=== PATIENT | female | born 1950 | race Caucasian/White ===

== ENCOUNTER 2020-01-05 05:56 | Inpatient (IN) ==
--- NOTE | 2019-12-20 16:48 | PAT Medication Instructions ---
Medication Instructions Date of Service December 20, 2019 Home Medications anastrozole 1 mg PO QAM atorvastatin 10 mg PO QPM bupropion HCl 300 mg PO QPM celecoxib [Celebrex] 200 mg PO QPM cholecalciferol (vitamin D3) [Vitamin D3] 1,000 unit PO DAILY cyanocobalamin (vitamin B-12) [Vitamin B-12] 1,000 mcg PO DAILY hydroxyzine HCl 25 mg PO UD PRN metformin 500 mg PO BID metoprolol tartrate 50 mg PO BID olmesartan-hydrochlorothiazide 1 tab PO QAM pantoprazole 40 mg PO HS potassium chloride 10 meq PO BID risperidone 1 mg PO HS ropinirole 1 mg PO UD PRN ASK your surgeon for instructions celecoxib [Celebrex] 200 mg PO QPM anastrozole 1 mg PO QAM STOP taking 24 hours before surgery ropinirole 1 mg PO UD PRN DO NOT take the morning of surgery potassium chloride 10 meq PO BID olmesartan-hydrochlorothiazide 1 tab PO QAM metformin 500 mg PO BID cholecalciferol (vitamin D3) [Vitamin D3] 1,000 unit PO DAILY cyanocobalamin (vitamin B-12) [Vitamin B-12] 1,000 mcg PO DAILY hydroxyzine HCl 25 mg PO UD PRN Take morning of surgery With a small sip of water, OTHERWISE NOTHING TO EAT OR DRINK AFTER MIDNIGHT: metoprolol tartrate 50 mg PO BID Take evening before surgery risperidone 1 mg PO HS pantoprazole 40 mg PO HS potassium chloride 10 meq PO BID metoprolol tartrate 50 mg PO BID metformin 500 mg PO BID atorvastatin 10 mg PO QPM bupropion HCl 300 mg PO QPM hydroxyzine HCl 25 mg PO UD PRN (if needed) Other Notes If you have any questions please call us at [phone] or [phone] or [phone] or [phone]
--- NOTE | 2019-12-21 12:30 | Anesthesiology Consultation ---
Date of Service December 21, 2019 Assessment & Plan (1) Encounter for pre-operative examination: Chart Review Chart Review: Pending: Refer to Additional Notes / Consult section (awaiting PCP and cardio clearance ) and Patient seen in Pre Admission Testing Surgeons office informed of urine results Awaiting PCP clearance (12/26) and cardio clearance (12/27) Teaching & Discussion Pre-Anesthesia Teaching/Discussion Notes: Instructed NPO after midnight before surgery,except medications with 15 cc of water. Medication instructions provided according to the PAT guidelines. History Surgery Operation Date: 01/05/20 07:45 Proposed Procedures p C5-C7 Anterior Cervical Discectomy and Fusion, Spinal Cord Monitoring - Hakeem Vides DO Height/Weight Height: 5 ft Weight: 87.5 kg Allergies Allergy/AdvReac Type Severity Reaction Status Date / Time amlodipine Allergy Unknown FEET Verified 12/14/19 09:05 SWELLING Bactrim Allergy Unknown HIVES Verified 10/20/15 06:00 sulfamethoxazole Allergy Unknown HIVES Verified 12/14/19 09:05 trimethoprim Allergy Unknown HIVES Verified 12/14/19 09:05 lisinopril AdvReac Unknown Cough Verified 12/14/19 09:05 Medications Home Medications Medication Instructions Recorded Confirmed Last Taken anastrozole 1 mg PO QAM 12/14/19 12/14/19 Unknown atorvastatin 10 mg PO QPM 12/14/19 12/14/19 Unknown bupropion HCl 300 mg PO QPM 12/14/19 12/14/19 Unknown celecoxib [Celebrex] 200 mg PO QPM 12/14/19 12/14/19 Unknown cholecalciferol (vitamin D3) 1,000 unit PO DAILY 12/14/19 12/14/19 Unknown [Vitamin D3] cyanocobalamin (vitamin B-12) 1,000 mcg PO DAILY 12/14/19 12/14/19 Unknown [Vitamin B-12] hydroxyzine HCl 25 mg PO UD PRN 12/14/19 12/14/19 Unknown metformin 500 mg PO BID 12/14/19 12/14/19 Unknown metoprolol tartrate 50 mg PO BID 12/14/19 12/14/19 Unknown olmesartan-hydrochlorothiazide 1 tab PO QAM 12/14/19 12/14/19 Unknown pantoprazole 40 mg PO HS 12/14/19 12/14/19 Unknown potassium chloride 10 meq PO BID 12/14/19 12/14/19 Unknown risperidone 1 mg PO HS 12/14/19 12/14/19 Unknown ropinirole 1 mg PO UD PRN 12/14/19 12/14/19 Unknown Past Medical History Medical History (Updated 12/22/19 @ 12:21 by Selma Mercado PA-C) Acid reflux Well controlled and stable Anxiety MEDS CONTROL Cervical disc disease Depression MEDS CONTROL Diabetes Well controlled and stable. Family history of reaction to anesthesia FATHER, SLOW TO WAKE UP High cholesterol History of anesthesia reaction JAW DISLOCATION (REMOTE HX YEARS AGO) NO PROBLEMS SINCE, DENIES CURRENT PROBLEMS WITH JAW History of left breast cancer DOUBLE MASTECTOMY AND HX RADIATION, CHEMO (2013)- no issues recently Hypertension Kidney stones CURRENT STONES NOTED TO KIDNEY BUT NO RECENT PASSING OF STONES OR ISSUES Rapid heartbeat ONE EPISODE- LESS THAN ONE YEAR AGO- A FIB RULE OUT- NO ISSUES SINCE- FOLLOWS WITH CARDIO Restless leg Exercise / Class Metabolic Activity II 4-5 Yardwork/Stairs/Walk up hill (ONE FLIGHT STAIRS- NO CHEST PAIN OR SOB) Past Family History Family History (Updated 12/14/19 @ 09:23 by Aidan Campbell RN) Grandmother Family history of diabetes mellitus Other Family history of breast cancer in mother Family history of colon cancer in father Past Surgical History Surgical History (Updated 12/21/19 @ 12:28 by Selma Mercado PA-C) History of bilateral mastectomy History of cholecystectomy History of colonoscopy & ENDOSCOPY (SAME TIME) History of D&C X3- MOST RECENTLY DONE 11/23/19 (SECONDARY TO CYST ON CERVIX) History of surgery PORT PLACEMENT RIGHT UPPER CHEST, CURRENT History of tonsillectomy History of total left knee replacement History of total right knee replacement Past Anesthesia History No Hx of Anesthesia Complications (ONE EPISODE OF JAW DISCLOCATION - HAS HAD SUBSEQUENT SURGERIES WITHOUT ISSUES ) and No Family Hx of Anesthesia Complications (FATHER- SLOW TO WAKE- DROWSY- NO PROLONGED INTUBATION OR ICU STAY) History of PONV No Hx of PONV and No Hx of Motion Sickness STOP BANG Total 4 Social History Smoking Status: Never smoker Do You Dip or Chew Tobacco: No Hx Alcohol Use: No Hx Substance Use: No substance use type: does not use Review of Systems Blood transfusion 1973- s/p childbirth Patient denies chest pain, shortness of breath, dyspnea on exertion, cough, wheezing, palpitations. No hx of seizures, stroke, NV, apnea/snoring. No hx of blood clots. No recent steroid use Physical Exam Vital Signs VITALS BP 118/74 P 58 TEMP 98.0 SP02 96% RESP 16 Constitutional + obese; no acute distress ENMT Mouth: no chipped teeth Thyromental Distance: < 3.5 Finger Breadths (3.0) Mallampati Class: III One crown to bottom left molar Missing molars Neck + short neck, + thick neck and + limited neck extension Respiratory normal respiratory effort; no respiratory distress Auscultation: lungs clear to auscultation bilaterally; no wheezes Cardiovascular Rate/Rhythm: regular rate and regular rhythm Heart Sounds: no murmur Vessels: no carotid bruit Extremities: no edema Musculoskeletal Spine: + pain with cervical ROM Neurologic moves all extremities Psychiatric Orientation: alert Testing Laboratory Results 12/21/19 12:38 12/21/19 12:38 PT 10.6 Seconds (9.0-12.0) 12/21/19 12:38 INR 1.0 (0.9-1.1) 12/21/19 12:38 APTT 24.5 Seconds (21.0-31.0) 12/21/19 12:38 Hemoglobin A1c 6.3 % (4.5-5.6) H 12/21/19 12:38 Urine Color Yellow 12/21/19 Unknown Urine Appearance Clear (Clear) 12/21/19 Unknown Urine pH 5.5 (4.5-7.5) 12/21/19 Unknown Ur Specific Fountain 1.016 (1.000-1.030) 12/21/19 Unknown Urine Protein Negative (Negative) 12/21/19 Unknown Urine Glucose (UA) Negative (Negative) 12/21/19 Unknown Urine Ketones Negative (Negative) 12/21/19 Unknown Urine Nitrite Negative (Negative) 12/21/19 Unknown Ur Leukocyte Esterase 2+ (Negative) H 12/21/19 Unknown Urine WBC (Auto) 10-30 /hpf (0-5) H 12/21/19 Unknown Urine RBC (Auto) 0-4 /hpf (0-4) 12/21/19 Unknown U Hyaline Cast (Auto) 1-5 /lpf (0-5) 12/21/19 Unknown U Epithel Cells (Auto) 10-20 /lpf (0-5) H 12/21/19 Unknown Urine Bacteria (Auto) 2+ (Negative) H 12/21/19 Unknown Blood Type O Positive 12/21/19 12:38 Antibody Screen NEGATIVE 12/21/19 12:38 12/21/19 Unknown Urine Culture - Preliminary Urine,Clean Catch Gram negative bacilli Electrocardiogram Date: 12/21/19 Findings: + SB @ (58) and + no change from (August 10, 2015) Low voltage QRS. Chest X-Ray Date: 12/21/19 Findings: + NAD
[2019-12-21 13:30] LABS: Basophils # (auto) 0.01 K/uL (0-0.2); Basophils % (auto) 0.2 %; Eosinophils # (auto) 0.06 K/uL (0-0.5); Eosinophils % (auto) 1.1 %; Hematocrit (blood only) 35.9 % (37-47); Immature Granulocytes # (auto) 0.01 K/uL (0.00-0.02); Immature Granulocytes % (auto) 0.2 %; Lymphocytes # (auto) 1.58 K/uL (1.2-3.4); Lymphocytes % (auto) 29.2 %; Mean Corpuscular Hemoglobin 31.3 pg (25-34); Mean Corpuscular Hgb Conc 33.4 g/dL (32-36); Mean Corpuscular Volume 93.5 fL (80-100); Mean Platelet Volume 10.4 fL (7.4-10.4); Monocytes # (auto) 0.51 K/uL (0.11-0.59); Monocytes % (auto) 9.4 %; Neutrophils # (auto) 3.24 K/uL (1.4-6.5); Neutrophils % (auto) 59.9 %; Platelet Count 215 K/uL (130-400); RDW Coefficient of Variation 12.6 % (11.5-14.5); RDW Standard Deviation 42.8 fL (36.4-46.3); Red Blood Count 3.84 M/uL (4.2-5.4); White Blood Count 5.41 K/uL (4.8-10.8)
--- NOTE | 2019-12-21 13:30 | XRay Report ---
XR chest Pre-admission PA/Lat CLINICAL HISTORY: pat preoperative evaluation COMPARISON STUDY: 08/10/2015 FINDINGS: The lungs are clear. Diaphragms are smooth. There is a central catheter in superior vena ca va. IMPRESSION: No acute process. ACT 112: Negative or not required by law. The above report was generated using voice recognition software. It may contain grammatical, syntax or spelling errors. Electronically signed by: Slim Matta M.D. 12/21/2019 1:28 PM
[2019-12-21 13:35] LABS: Appearance Urine Clear (Clear); Bacteria Urine Automated 2+ (Negative); Bilirubin Urine Negative (Negative); Blood Urine Negative (Negative); Color Urine Yellow; Glucose Urine UA Negative (Negative); Ketones Urine Negative (Negative); Leukocyte Esterase Urine 2+ (Negative); Nitrite Urine Negative (Negative); Protein Urine Negative (Negative); RBC Urine Automated 0-4 /hpf (0-4); Specific Gravity Urine 1.016 (1.000-1.030); Urobilinogen Urine Negative (Negative); pH Urine 5.5 (4.5-7.5)
[2019-12-21 13:47] LABS: Partial Thromboplastin Ratio 0.9; Partial Thromboplastin Time 24.5 Seconds (21.0-31.0); Prothrombin Time 10.6 Seconds (9.0-12.0)
[2019-12-21 14:05] LABS: BUN Creatinine Ratio 18.2 (10-20); Calcium 9.4 mg/dl (8.5-10.1); Creatinine Clr Calc Pharmacy 51.4 ml/min; Est GFR (African American) 64.7; Est GFR (Non-African American) 55.8; Potassium 4.1 mmol/L (3.5-5.1)
--- NOTE | 2019-12-21 15:33 | Electrocardiogram Report ---
Test Reason : Blood Pressure : / mmHG Vent. Rate : 058 BPM Atrial Rate : 058 BPM P-R Int : 160 ms QRS Dur : 076 ms QT Int : 440 ms P-R-T Axes : 039 -04 044 degrees QTc Int : 431 ms Sinus bradycardia Low voltage QRS Borderline ECG When compared with ECG of 10-AUG-2015 11:14, No significant change was found Confirmed by Nael Howard ([id number]) on 12/21/2019 3:32:49 PM Referred By: Hakeem Vides Confirmed By:Nael Howard
[2019-12-22 05:37] LABS: Estimated Average Glucose 134 mg/dl; Hemoglobin A1C 6.3 % (4.5-5.6)
[~2020-01-05 05:56] MED LIST: SODIUM CHLORIDE 0.9% 250 ML IV PRN
[2020-01-05] MEDS ORDERED: CeleBREX 200 MG CAP PO SCH (06:00)
[2020-01-05] MEDS ORDERED: CEFAZOLIN 2000MG 2,000 MG/15 ML SYR IV SCH (06:00)
[2020-01-05] MEDS ORDERED: GABAPENTIN 300 MG CAP PO SCH (06:00)
[2020-01-05] MEDS ORDERED: ACETAMINOPHEN 500 MG TAB PO SCH (06:00)
[2020-01-05] MEDS ORDERED: LR 15ML/HR IV SCH (06:00)
[2020-01-05] MEDS ORDERED: fentaNYL citrate 100 MCG/2 ML VIAL ONE (06:47)
[2020-01-05] MEDS ORDERED: MIDAZOLAM HCL 1 MG/ML 2ML VIAL ONE (06:48)
[2020-01-05] MEDS ORDERED: LIDOCAINE 2% JELLY 5 ML TUBE ONE (06:50)
[2020-01-05] MEDS ORDERED: PROPOFOL IV EMULSION 10 MG/ML 100 ML VIAL IV ONE (07:00)
[2020-01-05] MEDS ORDERED: HYDROmorphone INJ 1 MG/ML SYRINGE IV PRN ×2 (07:13→12:01)
[2020-01-05] MEDS ORDERED: BACITRACIN INJ 50,000 UNIT VIAL ONE (07:13)
[2020-01-05] MEDS ORDERED: ATROPINE SULFATE 0.1 MG/ML 10ML SYR IV PRN (07:13)
[2020-01-05] MEDS ORDERED: ePHEDrine sulfate 50 MG/ML AMP IV PRN (07:13)
[2020-01-05] MEDS ORDERED: ONDANSETRON INJ 2 MG/ML 2 ML VIAL IV PRN ×2 (07:13→12:01)
[2020-01-05] MEDS ORDERED: fentaNYL citrate 100 MCG/2 ML VIAL IV PRN (07:13)
--- NOTE | 2020-01-05 07:35 | History & Physical Report ---
Date of Service January 05, 2020 Assessment & Plan (1) Myelopathy concurrent with and due to spinal stenosis of cervical region: C5-C7 anterior cervical discectomy and fusion Present on Admission?: Yes History of Present Illness Chief Complaint: Neck and arm pain Primary Care Provider: PASTORA Diaz This is a 69-year-old female with a more decline in status struggling with neck and arm symptoms and is here for surgical invention. Allergies Allergy/AdvReac Type Severity Reaction Status Date / Time amlodipine Allergy Unknown FEET Verified 01/05/20 06:44 SWELLING Bactrim Allergy Unknown HIVES Verified 10/20/15 06:00 sulfamethoxazole Allergy Unknown HIVES Verified 01/05/20 06:44 trimethoprim Allergy Unknown HIVES Verified 01/05/20 06:44 lisinopril AdvReac Unknown Cough Verified 01/05/20 06:44 Home Medications Home Medications Medication Instructions Recorded Confirmed Type anastrozole 1 mg PO QAM 12/14/19 01/05/20 History atorvastatin 10 mg PO QPM 12/14/19 01/05/20 History bupropion HCl 300 mg PO QPM 12/14/19 01/05/20 History celecoxib [Celebrex] 200 mg PO QPM 12/14/19 01/05/20 History cholecalciferol (vitamin D3) 1,000 unit PO DAILY 12/14/19 01/05/20 History [Vitamin D3] cyanocobalamin (vitamin B-12) 1,000 mcg PO DAILY 12/14/19 01/05/20 History [Vitamin B-12] hydroxyzine HCl 25 mg PO UD PRN 12/14/19 01/05/20 History metformin 500 mg PO BID 12/14/19 01/05/20 History metoprolol tartrate 50 mg PO BID 12/14/19 01/05/20 History olmesartan-hydrochlorothiazide 1 tab PO QAM 12/14/19 01/05/20 History pantoprazole 40 mg PO HS 12/14/19 01/05/20 History potassium chloride 10 meq PO BID 12/14/19 01/05/20 History risperidone 1 mg PO HS 12/14/19 01/05/20 History ropinirole 1 mg PO UD PRN 12/14/19 01/05/20 History Past Med/Surg History Medical History (Updated 01/05/20 @ 07:35 by Hakeem Vides ) Acid reflux Well controlled and stable Anxiety MEDS CONTROL Cervical disc disease Depression MEDS CONTROL Diabetes Well controlled and stable. Family history of reaction to anesthesia FATHER, SLOW TO WAKE UP High cholesterol History of anesthesia reaction JAW DISLOCATION (REMOTE HX YEARS AGO) NO PROBLEMS SINCE, DENIES CURRENT PROBLEMS WITH JAW History of left breast cancer DOUBLE MASTECTOMY AND HX RADIATION, CHEMO (2013)- no issues recently Hypertension Kidney stones CURRENT STONES NOTED TO KIDNEY BUT NO RECENT PASSING OF STONES OR ISSUES Narrow complex tachycardia Controlled and stable- follows with cardio PRN- had cardio clearance 12/28/19 Rapid heartbeat ONE EPISODE- LESS THAN ONE YEAR AGO- A FIB RULE OUT- NO ISSUES SINCE- FOLLOWS WITH CARDIO Restless leg Surgical History (Updated 01/03/20 @ 09:16 by Selma Mercado PA-C) History of bilateral mastectomy History of cholecystectomy History of colonoscopy & ENDOSCOPY (SAME TIME) History of cystoscopy History of D&C X3- MOST RECENTLY DONE 11/23/19 (SECONDARY TO CYST ON CERVIX) History of lithotripsy History of surgery PORT PLACEMENT RIGHT UPPER CHEST, CURRENT History of tonsillectomy History of total left knee replacement History of total right knee replacement Family History (Updated 12/14/19 @ 09:23 by Aidan Campbell RN) Grandmother Family history of diabetes mellitus Other Family history of breast cancer in mother Family history of colon cancer in father Social History Preferred Language: Brazilian Communication Ability: Effective Title Clerk Required: No Beliefs That Will Affect Care: None Current Living Situation: Spouse Other Information That Helps Us Care for You: No Feels Safe at Home: Yes Smoking Status: Never smoker Do You Dip or Chew Tobacco: No ; Hx Alcohol Use: No Hx Substance Use: No Physical Exam Physical Exam: Patient is alert and oriented neurologically intact. Results & Data Vital Signs (Past 12 Hours) Vital Signs Temp Pulse Resp BP Pulse Ox 01/05/20 06:51 36.6 C 55 L 18 130/69 99
--- NOTE | 2020-01-05 07:35 | History & Physical Bridge Note ---
Date of Service January 05, 2020 History & Physical Bridge Note I have examined the patient, reviewed the History & Physical and in the interval since the performance of the History & Physical I have noted the following changes of clinical significance: no changes noted
[2020-01-05] MEDS ORDERED: ROCURONIUM BROMIDE 10 MG/ML 5 ML VIAL ONE (08:42)
[2020-01-05] MEDS ORDERED: SODIUM CHLORIDE 0.9% INJ 10 ML VIAL ONE (08:42)
[2020-01-05] MEDS ORDERED: DEXAMETHASONE SOD INJ 4 MG/ML VIAL ONE (08:42)
[2020-01-05] MEDS ORDERED: PROPOFOL IV EMULSION 10 MG/ML 20 ML VIAL IV ONE (08:42)
[2020-01-05] MEDS ORDERED: ePHEDrine sulfate 50 MG/ML SYR ONE (08:42)
[2020-01-05] MEDS ORDERED: SUCCINYLCHOLINE CHLORIDE 20 MG/ML 10 ML VIAL ONE (08:42)
[2020-01-05] MEDS ORDERED: LIDOCAINE HCL 2% 2 ML VIAL/AMP(20MG/ML) INFIL ONE (08:42)
[2020-01-05] MEDS ORDERED: ONDANSETRON INJ 2 MG/ML 2 ML VIAL ONE (08:42)
[2020-01-05] MEDS ORDERED: NEOSTIGMINE METHYLSULFATE 5 MG/5 ML SYR ONE (09:24)
[2020-01-05] MEDS ORDERED: GLYCOPYRROLATE 0.2 MG/ML VIAL ONE (09:24)
--- NOTE | 2020-01-05 09:24 | Operative Report ---
Post Operative Report Pre & Post Diagnosis Operation Date: 01/05/20 07:45 Pre-Op Diagnosis: Myelopathy Concurrent with and due to Spinal Stenosis of Cervical Region Post-Op Diagnosis: Myelopathy Concurrent with and due to Spinal Stenosis of Cervical Region I identified the patient and participated in the time-out.: Yes Procedure Operation Date: 01/05/20 07:45 Actual Procedures #1 anterior cervical discectomy with bilateral foraminotomies C5-6 and C6-7. #2 anterior cervical arthrodesis C5-6 and C6-7. #3 placement of cortical allograft filled with DBM 6 mm in height at C5-6 and 7 mm NC 6 7. #4 application of bray plate and screws across C5-6 and C6-7. Surgeon Hakeem Vides, Import/Export Specialist Ivana Roa Estimated Blood Loss 20 Findings Consistent with Post-Op Diagnosis Specimens None Indications This is a 61-year-old female well-known to me that presents with marked decline in status she is experiencing pain coordination deficits predominantly in the left upper extremity elected undergo the above-mentioned procedure. Description of Procedure Patient was met with identified informed consent obtained. Patient was then taken to the operative suite underwent intubation placed in supine position the Ramana table head Vasquez head ordered. All bony prominences well-padded eyes inspected to ensure no external pressure was prompt at this point the anterior cervical spine was prepped and draped in a sterile fashion. The assistance of fluoroscopy identified the C6 vertebral body and a transverse incision was placed along the right anterior aspect of the cervical spinal lines region. Sharp dissection with the assistance of bipolar electrocautery performed down to and exposing the anterior cervical spine from C5-C7. A self-retaining retractor was placed. Then performed a complete discectomy of C5-6 out to the uncovertebral joints bilaterally. Mobile distracting pins were utilized to assist in visualization. Removed all posterior annular fibers longitudinal ligament bilateral foraminotomies performed. Endplates were then burred to subcortical bleeding bone and a 6 mm cortical allograft filled with DBM tapped in position. Then proceeded to C6-7. Again complete discectomy performed out to the uncovertebral joints bilaterally. This included removal of all posterior annular fibers longitudinal ligament bilateral foraminotomies performed. Endplates produce subcortical bleeding bone and a 7 mm cortical allograft filled with DBM tapped in position. All anterior osteophytes were then burred to a smooth cortical surface and a bray plate and screws applied with the assistance of fluoroscopy. The incision was then copiously irrigated explored to ensure no damage to surrounding structures remaining bleeding. A 10 round JOE drain inserted. Incision was then closed with 1 Vicryl the fascia 2-0 Vicryl subcutaneously and 4 Monocryl for final skin closure. Steri-Strips placed. Sterile dressing placed. Patient will continue PACU stable condition. Please note Ivana Roa present at the entire procedure involved the patient position ing complex portions of the surgery and final skin closure. Lastly spinal cord monitoring was utilized that the procedure no changes noted. I attest to the content of the Intraoperative Record and any orders documented therein. Any exceptions are noted below.
[2020-01-05] MEDS ORDERED: FLOSEAL HEMOSTATIC MATRIX 10ML TOP ONE (09:28)
--- NOTE | 2020-01-05 09:40 | Fluoroscopy Report ---
FL cervical 2-3V CLINICAL HISTORY: ACDF C5-C7 COMPARISON STUDY: None. FLUOROSCOPY TIME: 8 sacral. FINDINGS: 3 fluoroscopic spot images of the cervical spine demonstrate C5-C7 ACDF. IMPRESSION: Fluoroscopy provided for C5 C7 ACDF ACT 112: Negative or not required by law. Electronically signed by: Damion Larry M.D. 01/05/2020 9:38 AM
[2020-01-05] MEDS ORDERED: ALUMINUM/MAGNESIUM SUSP 30 ML UDC PO PRN (12:01)
[2020-01-05] MEDS ORDERED: RACEPINEPHRINE 2.25% NEBU SOLN 0.5 ML VIAL INH PRN (12:01)
[2020-01-05] MEDS ORDERED: TRAMADOL HCL 50 MG TABLET PO PRN (12:01)
[2020-01-05] MEDS ORDERED: DO NOT ADMINISTER FLU VACCINE PRN (12:01)
[2020-01-05] MEDS ORDERED: OXYCODONE HCL IR 5 MG TAB (IMMEDIATE RELEASE) PO PRN (12:01)
[2020-01-05] MEDS ORDERED: FAMOTIDINE 20 MG TAB PO PRN (12:01)
[2020-01-05] MEDS ORDERED: MAGNESIUM HYDROXIDE SUSP 30 ML UDC PO PRN (12:01)
[2020-01-05] MEDS ORDERED: LORazepam 0.5 MG/1 ML VIAL IV PRN (12:01)
[2020-01-05] MEDS ORDERED: DEXAMETHASONE SOD PHOSPHATE 8 MG in SYRINGE 0 ML IV PRN (12:01)
[2020-01-05] MEDS ORDERED: SOD PHOSPHATE/SOD BIPHOSPHATE ENEMA 132 ML BTL PR PRN (12:01)
[2020-01-05] MEDS ORDERED: PROMETHAZINE HCL 12.5 MG in SODIUM CHLORIDE 0.9% 50 ML IV PRN (12:01)
[2020-01-05] MEDS ORDERED: ACETAMINOPHEN 1,000 MG/100 ML VIAL IV PRN (12:01)
[2020-01-05] MEDS ORDERED: HYDROmorphone INJ 0.5 MG/0.5 ML SYR IV PRN (12:01)
[2020-01-05] MEDS ORDERED: ONDANSETRON 4 MG OD TAB PO PRN (12:01)
[2020-01-05] MEDS ORDERED: LORazepam 0.5 MG TAB PO PRN (12:01)
[2020-01-05] MEDS ORDERED: NALOXONE HCL 0.4 MG/1 ML VIAL/CARP IV PRN (12:01)
[2020-01-05] MEDS ORDERED: DO NOT ADMINISTER PNEUMOCOCCAL VACCINE PRN (12:01)
[2020-01-05] MEDS ORDERED: ACETAMINOPHEN 500 MG TAB PO PRN (12:01)
[2020-01-05] MEDS ORDERED: METOCLOPRAMIDE HCL INJ 5 MG/ML 2 ML VIAL IV PRN (12:01)
[2020-01-05] MEDS ORDERED: ROPINIROLE HCL 1 MG TABLET PO PRN (12:01)
--- NOTE | 2020-01-05 12:24 | Anesthesiology Progress Note ---
Date of Service January 05, 2020 Anesthesia Post Procedure Vital Signs Vital Signs: Temp Pulse Pulse Resp BP Pulse Ox Pulse Ox 01/05/20 12:15 64 22 134/79 99 01/05/20 11:35 36.4 C L 61 18 123/78 98 98 01/05/20 11:20 58 L 13 130/70 99 01/05/20 11:10 55 L 12 129/68 99 01/05/20 11:00 56 L 15 125/69 98 01/05/20 10:50 36.3 C L 59 L 18 127/68 99 01/05/20 10:40 59 L 12 119/72 99 01/05/20 10:30 58 L 15 128/67 98 01/05/20 10:20 60 12 124/68 98 01/05/20 10:10 65 12 132/75 95 01/05/20 10:00 64 12 126/62 95 01/05/20 09:50 36.5 C 67 12 124/66 95 01/05/20 06:51 36.6 C 55 L 18 130/69 99 Pain Intensity Medial Neck: Pain Intensity: 3 Transfer of Care Handoff Completed per policy Notes Mental Status: alert / awake / arousable and participated in evaluation Patient Amnestic to Procedure: Yes Nausea / Vomiting: adequately controlled Pain: adequately controlled Airway Patency, RR, SpO2: stable & adequate BP & HR: stable & adequate Hydration State: stable & adequate Anesthetic Complications: no major complications apparent and Pt Satisfied with anesthetic care
[2020-01-05] MEDS: SODIUM CHLORIDE 0.9% 1000ML 1,000 ML IV SCH ×2 (12:44→22:43)
[2020-01-05] MEDS ORDERED: DEXTROSE 50% 50 ML SYRINGE IV PRN (13:06)
[2020-01-05] MEDS ORDERED: GLUCAGON FOR INJ 1 MG VIAL SQ PRN (13:06)
[2020-01-05] MEDS ORDERED: GLUCOSE 40% GEL 15 GM TUBE PO PRN (13:06)
[2020-01-05] MEDS ORDERED: GLUCOSE 10 TABS/TUBE PO PRN (13:06)
[2020-01-05] MEDS ORDERED: CARBOHYDRATES FOR HYPOGLYCEMIA PO PRN (13:06)
--- NOTE | 2020-01-05 13:18 | Consultation ---
Date of Consultation January 05, 2020 Assessment & Plan (1) History of cervical spinal surgery: Post op day# 0 S/P ACDF C5-C7 by Dr Vides EBL#20ml -pain management per ortho -wound management per ortho -PT/OT as appropriate -DVT prophylaxis per ortho -monitor H&H for acute blood loss anemia; pre-op Hgb: 12 (2) Diabetes mellitus, type II: A1c: 6.3 on 12/21/2019 -Hold metformin -Novolog sliding scale per protocol (3) Hypertension: Stable -Continue olmesartan, metoprolol -Hold HCTZ tomorrow and reassess (4) Dyslipidemia: -Continue atorvastatin (5) Anxiety: -Continue bupropion, risperidone (6) History of left breast cancer: Left breast CA s/p chemo, radiation, bilateral mastectomy in 2013 -Continue anastrozole (7) GERD (gastroesophageal reflux disease): -Continue PPI DVT Prophylaxis -SCDs per ortho Disposition per primary Full Code as per discussion with pt Follows with Anthony GUILLORY at [facility] for routine care Pt was seen and care coordinated with Dr aHger. See addendum Supervising Physician Co-Signing Physician Notes Attending Addendum: care coordinated with EDWARDO Douglass please refer to her notes for full details, I agree with her notes patient seen and examined, records reviewed by myself as well on exam, patient seen resting in bed, comfortable no other symptoms VS noted and reviewed oriented x 3, not in distress, speaks in sentences with no effort nor accessory muscle use neck- dressing in place, drain in place with small amount of serosanguinous output normal rate, regular rhythm, no murmurs clear breath sounds bilaterally non distended, soft, nontender no bipedal edema, erythema, warmth no neuro deficits ASSESSMENT AND PLAN S/P CERVICAL SPINE SURGERY stable overall labs tomorrow- CBC, BMP DM 2 hold metformin while admitted ISS with novolog HTN stable hold HCTZ to prevent dehydration continue Olmesartan, and Metoprolol other diagnoses and plan of care as per EDWARDO Douglass notes Anthony Hager MD History of Present Illness Requesting Physician: Dr Vides Reason for Consultation: Post op medical management Attending Physician: Hakeem Vides, DO History of Present Illness Pt is 69 y/o F with PMH HTN, HLD, DM II, anxiety, GERD, L breast CA s/p bilateral mastectomy, chemo and radiation in 2013 seen in consultation for post op medical management s/p ACDF C5-C7 today by Dr Vides. Post op pt reports doing well. Denies upper extremity paresthesias. Reports throat feels a little sore. Denies any difficulty swallowing or painful swallowing. Denies SOB, CP, nausea or vomiting. Was treated Cipro for e.coli UTI a couple of weeks ago. Denies fever/chills, diaphoresis, MANCILLA, dizziness, syncope, vision changes, palpitations, cough, rhinorrhea, abdominal pain, paresthesias, extremity weakness, extremity edema, rashes, urinary symptoms. Allergies Allergy/AdvReac Type Severity Reaction Status Date / Time amlodipine Allergy Unknown FEET Verified 01/05/20 06:44 SWELLING Bactrim Allergy Unknown HIVES Verified 10/20/15 06:00 sulfamethoxazole Allergy Unknown HIVES Verified 01/05/20 06:44 trimethoprim Allergy Unknown HIVES Verified 01/05/20 06:44 lisinopril AdvReac Unknown Cough Verified 01/05/20 06:44 Home Medications Home Medications Medication Instructions Recorded Confirmed Type anastrozole 1 mg PO QAM 12/14/19 01/05/20 History atorvastatin 10 mg PO QPM 12/14/19 01/05/20 History bupropion HCl 300 mg PO QPM 12/14/19 01/05/20 History celecoxib [Celebrex] 200 mg PO QPM 12/14/19 01/05/20 History cholecalciferol (vitamin D3) 1,000 unit PO DAILY 12/14/19 01/05/20 History [Vitamin D3] cyanocobalamin (vitamin B-12) 1,000 mcg PO DAILY 12/14/19 01/05/20 History [Vitamin B-12] hydroxyzine HCl 25 mg PO UD PRN 12/14/19 01/05/20 History metformin 500 mg PO BID 12/14/19 01/05/20 History metoprolol tartrate 50 mg PO BID 12/14/19 01/05/20 History olmesartan-hydrochlorothiazide 1 tab PO QAM 12/14/19 01/05/20 History pantoprazole 40 mg PO HS 12/14/19 01/05/20 History potassium chloride 10 meq PO BID 12/14/19 01/05/20 History risperidone 1 mg PO HS 12/14/19 01/05/20 History ropinirole 1 mg PO UD PRN 12/14/19 01/05/20 History Patient History Medical History (Updated 01/05/20 @ 13:16 by Kimberly Schumacher PA-C) Acid reflux Well controlled and stable Anxiety MEDS CONTROL Cervical disc disease Depression MEDS CONTROL Diabetes Well controlled and stable. Diabetes mellitus, type II Dyslipidemia Family history of reaction to anesthesia FATHER, SLOW TO WAKE UP High cholesterol History of anesthesia reaction JAW DISLOCATION (REMOTE HX YEARS AGO) NO PROBLEMS SINCE, DENIES CURRENT PROBLEMS WITH JAW History of left breast cancer DOUBLE MASTECTOMY AND HX RADIATION, CHEMO (2013)- no issues recently Hypertension Kidney stones CURRENT STONES NOTED TO KIDNEY BUT NO RECENT PASSING OF STONES OR ISSUES Narrow complex tachycardia Controlled and stable- follows with cardio PRN- had cardio clearance 12/28/19 Rapid heartbeat ONE EPISODE- LESS THAN ONE YEAR AGO- A FIB RULE OUT- NO ISSUES SINCE- FOLLOWS WITH CARDIO Restless leg Surgical History (Updated 01/05/20 @ 13:16 by Kimberly Schumacher PA-C) History of bilateral mastectomy History of cholecystectomy History of colonoscopy & ENDOSCOPY (SAME TIME) History of cystoscopy History of D&C X3- MOST RECENTLY DONE 11/23/19 (SECONDARY TO CYST ON CERVIX) History of lithotripsy History of surgery PORT PLACEMENT RIGHT UPPER CHEST, CURRENT History of tonsillectomy History of total left knee replacement History of total right knee replacement Family History Grandmother Family history of diabetes mellitus Other Family history of breast cancer in mother Family history of colon cancer in father Social History Preferred Language: Georgian Communication Ability: Effective Manager Party Required: No Beliefs That Will Affect Care: None Current Living Situation: Spouse Other Information That Helps Us Care for You: No Feels Safe at Home: Yes Smoking Status: Never smoker Do You Dip or Chew Tobacco: No ; Hx Alcohol Use: No Hx Substance Use: No Review of Systems Review of Systems: All systems reviewed & are unremarkable except as noted in HPI & below Physical Exam Physical Exam: General: no distress, WDWN Head: normocephalic, atraumatic Eyes: PERRL, EOM's intact, conjunctiva non-injected, anicteric ENT: normal inspection external ears, nose, mucous membranes moist Neck: supple, trachea midline, +dressing to anterior neck in place is dry, +JOE drain in place with small amount serosanguineous drainage Lungs: clear, no respiratory distress, no wheezing/rhonchi/rales CV: RRR, no murmur, no pretibial edema Abd: normal BS, soft, non-tender Ext: no cyanosis, no calf tenderness; distal pulses intact, brisk capillary refill, sensation to light touch intact, manager costing strength intact bilaterally, bilateral pedal pushes and pulls intact Neuro: A&O x 3, no focal deficits noted, normal affect Skin: warm, dry Results & Data ([facility]) Vital Signs (Past 12 Hours) Vital Signs Temp Pulse Pulse Resp BP Pulse Ox Pulse Ox 01/05/20 12:40 67 18 99 01/05/20 12:37 36.5 C 67 18 131/78 99 01/05/20 12:15 64 22 134/79 99 01/05/20 11:35 36.4 C L 61 18 123/78 98 98 01/05/20 11:20 58 L 13 130/70 99 01/05/20 11:10 55 L 12 129/68 99 01/05/20 11:00 56 L 15 125/69 98 01/05/20 10:50 36.3 C L 59 L 18 127/68 99 01/05/20 10:40 59 L 12 119/72 99 01/05/20 10:30 58 L 15 128/67 98 01/05/20 10:20 60 12 124/68 98 01/05/20 10:10 65 12 132/75 95 01/05/20 10:00 64 12 126/62 95 01/05/20 09:50 36.5 C 67 12 124/66 95 01/05/20 06:51 36.6 C 55 L 18 130/69 99
[2020-01-05] MEDS: INSULIN ASPART 100 UNITS/ML 3 ML PEN SC SCH ×3 (13:39→22:07)
[2020-01-05] MEDS: CEFAZOLIN 2000MG 2,000 MG/15 ML SYR IV SCH (15:19)
[2020-01-05] MEDS ORDERED: COUGH DROP (SUGAR FREE) LOZ 24 LOZ/1 BOX BUCCAL STA (15:25)
[2020-01-05] MEDS: POTASSIUM CHLORIDE 10 MEQ TABCR PO SCH (20:47)
[2020-01-05] MEDS: METOPROLOL TARTRATE 50 MG TAB PO SCH (20:47)
[2020-01-05] MEDS ORDERED: BuPROPion XL 300 MG TABCR PO SCH (21:00)
[2020-01-05] MEDS ORDERED: risperiDONE 1 MG TABLET PO SCH (21:00)
[2020-01-05] MEDS ORDERED: DOCUSATE SODIUM/SENNA 50/8.6MG TAB PO SCH (21:00)
[2020-01-05] MEDS ORDERED: ATORVASTATIN 10 MG TAB PO SCH (21:00)
[2020-01-05] MEDS ORDERED: PANTOprazole 40 MG TAB PO SCH (21:00)
[2020-01-06] MEDS: CEFAZOLIN 2000MG 2,000 MG/15 ML SYR IV SCH (00:07)
[2020-01-06] MEDS: METOPROLOL TARTRATE 50 MG TAB PO SCH (08:25)
[2020-01-06] MEDS: POTASSIUM CHLORIDE 10 MEQ TABCR PO SCH (08:25)
[2020-01-06] MEDS: INSULIN ASPART 100 UNITS/ML 3 ML PEN SC SCH (08:30)
[2020-01-06] MEDS ORDERED: hydroCHLOROthiazide 25 MG TAB PO SCH (09:00)
[2020-01-06] MEDS ORDERED: CYANOCOBALAMIN 500 MCG TABLET (VITAMIN B-12) PO SCH (09:00)
[2020-01-06] MEDS ORDERED: OLMESARTAN MEDOXOMIL 40 MG TAB PO SCH (09:00)
[2020-01-06] MEDS ORDERED: ANASTROZOLE 1 MG TAB PO SCH (09:00)
[2020-01-06] MEDS ORDERED: CHOLECALCIFEROL 1,000 UNITS 25 MCG TAB PO SCH (09:00)
--- NOTE | 2020-01-06 09:04 | Discharge Summary ---
Date of Service January 06, 2020 Admission HPI Per Admitting Provider This is a 69-year-old female with a more decline in status struggling with neck and arm symptoms and is here for surgical invention. Principal Diagnosis Cervical spinal stenosis with myeloradiculopathy Discharge Data Allergies Allergy/AdvReac Type Severity Reaction Status Date / Time amlodipine Allergy Unknown FEET Verified 01/05/20 06:44 SWELLING Bactrim Allergy Unknown HIVES Verified 10/20/15 06:00 sulfamethoxazole Allergy Unknown HIVES Verified 01/05/20 06:44 trimethoprim Allergy Unknown HIVES Verified 01/05/20 06:44 lisinopril AdvReac Unknown Cough Verified 01/05/20 06:44 Consultations 01/05/20 12:01 Consult Hospitalist Routine Procedures Performed Operation Date: 01/05/20 07:45 Actual Procedures p C5-C7 Anterior Cervical Discectomy and Fusion, Spinal Cord Monitoring(Not Applicable) - Hakeem Vides DO Ordered Studies 01/05/20 07:45 FL cervical 2-3V Routine FL fluoroscopy <1hr Routine Hospital Course (1) Myelopathy concurrent with and due to spinal stenosis of cervical region: Patient went anterior cervical discectomy tolerated well and taken to orthopedic floor possibly. Postop day #1 she had no issues with swallowing. No hoarseness. Arm symptoms markedly improved. Balance improved. JOE drain decreasing appropriately. Subsequent discharge home. Discharge orders instructions from the chart for further review. Total Time Total Time Spent Total Time Spent (In Minutes): 20 minutes Discharge Plan Discharge Items Patient Disposition: Home - Self-Care Reason For Visit: Spinal Stenosis, Cervical Region Discharge Diagnosis: ACTIVITY RECOMMENDATIONS: SELF CARE INSTRUCTIONS AFTER CERVICAL FUSIONS 1. No smoking. Smoking drastically decreases the chance of a solid fusion. 2. No bending, lifting more than 5 pounds, or twisting (roll like a log when turning in bed). 3. You may shower 3 days after surgery. Thoroughly dry wound. Do not soak in the tub. 4. Cervical collar: Must be worn at all times including sleeping. You may remove the brace only to bath, eat and if you are sitting in a recliner. 5. Please walk as much as you can for exercise. Gradually increase the distance that you walk as your endurance increases. SPECIAL CARE INSTRUCTIONS: VERY IMPORTANT TO READ AND REVIEW A. Do not take any anti-inflammatory medications (i.e. Indocin, Advil, Aspirin, Naprosyn, Aleve, Motrin, etc.) as these may inhibit the chance of a solid fusion. Tylenol is okay to take. B. Your surgical incision has been closed with a cosmetic suture under the skin that will dissolve in about 6 weeks. In 14 days, you can use a pair of clean scissors and cut the suture that is left outside of the skin at the ends of your incision. C. Complications are uncommon, but please contact us if you have any signs or symptoms of: 1. wound infection (fever higher than 102.5 degrees F, redness, separation of wound, drainage, or increasing pain from the incision) 2. blood clots in legs (pain, swelling, redness and warmth in legs) 3. urinary tract infection (fever higher than 102.5 degrees, burning upon urination or increased frequency of urination) 4. nerve problems (inability to walk on your toes or heels, numbness, loss of bowel or bladder control) 5. any other symptoms that concern you. D. Please call the office at if you have any concerns or questions about your operation or recovery. MANAGING PAIN AFTER SPINAL SURGERY 1. Narcotic medication is intended for short-term use and will be provided for surgical pain. Surgical pain usually lasts for a period of 4-6 weeks. Narcotic medication includes Percocet, Vicodin, Darvocet, Tylenol #3 or Lortab. 2. Longer-term pain is more appropriately treated with non-narcotic medication such as Tylenol ES. 3. Muscle spasm is not appropriately treated with narcotics. Muscle relaxers such as Soma, Flexeril or Skelaxin can be used along with Tylenol ES. 4. Remember that we all live with some "aches and pains". This is not unusual or uncommon after an injury or as we get older. 5. We will provide appropriate medication within the normal guidelines of their prescribed use. We will also be very cautious and aware of potential abuse and extended duration of patients' medication needs. 6. Please allow 2-3 days to process refills. Prescriptions will not be mailed but must be picked up at the office. FOLLOW UP VISIT: Keep your scheduled follow-up appointment. Any questions, please call the office at . Activity: As commented below Non-emergency contact: Primary Care Provider Call non-emergency contact if: you have any medication questions Follow-up/Referrals: Anthony Martinez CRNP [Primary Care Provider] - Diet: Regular Addtl Attending Provider Instructions: ACTIVITY RECOMMENDATIONS: SELF CARE INSTRUCTIONS AFTER CERVICAL FUSIONS 1. No smoking. Smoking drastically decreases the chance of a solid fusion. 2. No bending, lifting more than 5 pounds, or twisting (roll like a log when turning in bed). 3. You may shower 3 days after surgery. Thoroughly dry wound. Do not soak in the tub. 4. Cervical collar: Must be worn at all times including sleeping. You may remove the brace only to bath, eat and if you are sitting in a recliner. 5. Please walk as much as you can for exercise. Gradually increase the distance that you walk as your endurance increases. SPECIAL CARE INSTRUCTIONS: VERY IMPORTANT TO READ AND REVIEW A. Do not take any anti-inflammatory medications (i.e. Indocin, Advil, Aspirin, Naprosyn, Aleve, Motrin, etc.) as these may inhibit the chance of a solid fusion. Tylenol is okay to take. B. Your surgical incision has been closed with a cosmetic suture under the skin that will dissolve in about 6 weeks. In 14 days, you can use a pair of clean scissors and cut the suture that is left outside of the skin at the ends of your incision. C. Complications are uncommon, but please contact us if you have any signs or symptoms of: 1. wound infection (fever higher than 102.5 degrees F, redness, separation of wound, drainage, or increasing pain from the incision) 2. blood clots in legs (pain, swelling, redness and warmth in legs) 3. urinary tract infection (fever higher than 102.5 degrees, burning upon urination or increased frequency of urination) 4. nerve problems (inability to walk on your toes or heels, numbness, loss of bowel or bladder control) 5. any other symptoms that concern you. D. Please call the office at if you have any concerns or questions about your operation or recovery. MANAGING PAIN AFTER SPINAL SURGERY 1. Narcotic medication is intended for short-term use and will be provided for surgical pain. Surgical pain usually lasts for a period of 4-6 weeks. Narcotic medication includes Percocet, Vicodin, Darvocet, Tylenol #3 or Lortab. 2. Longer-term pain is more appropriately treated with non-narcotic medication such as Tylenol ES. 3. Muscle spasm is not appropriately treated with narcotics. Muscle relaxers such as Soma, Flexeril or Skelaxin can be used along with Tylenol ES. 4. Remember that we all live with some "aches and pains". This is not unusual or uncommon after an injury or as we get older. 5. We will provide appropriate medication within the normal guidelines of their prescribed use. We will also be very cautious and aware of potential abuse and extended duration of patients' medication needs. 6. Please allow 2-3 days to process refills. Prescriptions will not be mailed but must be picked up at the office. FOLLOW UP VISIT: Keep your scheduled follow-up appointment. Any questions, please call the office at . Pending Studies at Discharge: No Stand-Alone Forms: My [facility] [email or web address], Smoking Cessation Medications and DC Order Prescriptions: New tramadol 50 mg tablet 50 mg PO Q6H PRN (Reason: pain, moderate) Qty: 10 RF: 0 oxycodone 5 mg tablet 5 mg PO Q6H PRN (Reason: pain, severe) Qty: 10 RF: 0 Continued metformin 500 mg Tablet 500 mg PO BID RF: 0 anastrozole 1 mg Tablet 1 mg PO QAM RF: 0 potassium chloride 10 mEq Capsule, Extended Release 10 meq PO BID RF: 0 ropinirole 1 mg Tablet 1 mg PO UD PRN (Reason: Restless Leg(S)) RF: 0 atorvastatin 10 mg Tablet 10 mg PO QPM RF: 0 cyanocobalamin (vitamin B-12) [Vitamin B-12] 1,000 mcg Tablet 1,000 mcg PO DAILY RF: 0 pantoprazole 40 mg Tablet,Delayed Release (Dr/Ec) 40 mg PO HS RF: 0 metoprolol tartrate 50 mg Tablet 50 mg PO BID RF: 0 hydroxyzine HCl 25 mg Tablet 25 mg PO UD PRN (Reason: Anxiety) RF: 0 risperidone 1 mg Tablet 1 mg PO HS RF: 0 olmesartan-hydrochlorothiazide 40-25 mg Tablet 1 tab PO QAM RF: 0 bupropion HCl 300 mg Tablet Extended Release 24 Hr 300 mg PO QPM RF: 0 cholecalciferol (vitamin D3) [Vitamin D3] 25 mcg (1,000 unit) Tablet 1,000 unit PO DAILY RF: 0 Discontinued celecoxib [Celebrex] 200 mg Capsule 200 mg PO QPM RF: 0 Discharge Orders: Discharge Order (Routine); Ordered 01/06/20 Ordered By: Hakeem Daniel/Other Patient Handouts: A1C Admission Data Admit Date/Time: 01/05/20 10:13 Attending Provider: Hakeem Vides Admit Provider: Hakeem Vides Primary Care Provider: Anthony Martinez Other Providers: Zeus Trejo ; Monique Lima
[2020-01-06] MEDS ORDERED: POLYETHYLENE (MIRALAX) 17 GM PACK PO SCH (09:26)
--- NOTE | 2020-01-06 11:03 | Hospitalist Progress Note ---
Date of Service January 06, 2020 Assessment & Plan (1) History of cervical spinal surgery: Post op day#1 S/P ACDF C5-C7 by Dr Vides No post complication Continue pain control PT/OT Fall precaution (2) Diabetes mellitus, type II: A1c: 6.3 on 12/21/2019 Metformin on hold, will resume on discharge On Novolog sliding scale per protocol during hospital stay (3) Hypertension: Continue olmesartan, metoprolol HCTZ on hold, will resume on discharge Stable (4) Dyslipidemia: Continue atorvastatin (5) Anxiety: Continue bupropion, risperidone Stable (6) History of left breast cancer: Left breast CA s/p chemo, radiation, bilateral mastectomy in 2014 Continue anastrozole (7) GERD (gastroesophageal reflux disease): Continue PPI DVT Prophylaxis SCDs per ortho CODE Status Full Code Admission and Anticipated Discharge Date Admission Date: January 05, 2020 Subjective Pt was seen and examined Standing in the bathroom doing her hair to get ready to discharge Pt said that she feels fine She said that she does not have any difficulty to swallow Denies any chest pain, palpitation, dizziness and SOB Physical Exam Physical Exam: General- No acute distress Head- atraumatic Eyes- PERRL, EOMI, ENT- oropharynx clear Neck- supple, no JVD, + dressing in anterior neck area Lungs- clear to auscultation Heart- regular rhythm; no murmur Abdomen- normal bowel sounds, soft, nontender Extremities- no calf tenderness Neuro- alert, oriented x 3; PERRL, EOMI; no facial palsy; no dysarthria Skin- warm & dry Results & Data Results & Data ([facility]) Vital Signs (Past 12 Hours) Vital Signs Temp Pulse Pulse Resp BP Pulse Ox 01/06/20 10:08 36.5 C 68 16 126/77 97 01/06/20 09:50 36.6 C 64 67 16 145/90 H 98 01/06/20 09:07 36.6 C 64 16 145/90 H 98 01/06/20 06:57 82 18 96 01/06/20 06:42 36.7 C 67 18 122/76 97 01/06/20 05:33 58 L 117/72 01/06/20 04:39 36.6 C 59 L 16 147/82 H 94 01/06/20 03:10 73 16 97 01/06/20 02:35 36.7 C 64 16 115/69 95 01/06/20 00:40 36.7 C 57 L 18 106/66 94 01/05/20 23:38 59 L 16 93
[2020-01-07] MEDS ORDERED: bisacodyL 10 MG SUPP PR PRN (09:26)
== END 2020-01-06 12:13 | disposition home or self-care (01) | DRG 472 ==
LOC: ASU 05:56 → 3E 10:13